=== PATIENT | male | born 1975 | race Caucasian/White ===

== ENCOUNTER 2020-09-29 21:36 | Observation (INO) ==
[2020-09-29] MEDS ORDERED: Ondansetron 4 MG/2 ML VIAL IVP PRN (23:47)
[2020-09-29] MEDS ORDERED: Naloxone 0.4 MG/ML INJ IVP PRN (23:47)
[2020-09-30 00:28] LABS: Hematocrit 45.1 % (37.5-50.1); Hemoglobin 14.5 g/dL (12.9-16.9); Mean Corpuscular HGB Conc 32.2 g/dL (31.6-35.5); Mean Corpuscular Volume 83.8 fL (83.0-100.0); Mean Platelet Volume 10.6 fL (9.4-12.4); Platelet Count 166 K/mcL (140-400); Red Blood Count 5.38 M/mcL (4.19-5.50); Red Cell Distribution Width 13.1 % (11.5-14.5)
[2020-09-30 00:42] LABS: BUN/Creatinine Ratio 18 (6-26); Blood Urea Nitrogen 20 mg/dL (6-20); C-Reactive Protein 44 mg/L (Less than 10); Calcium 8.8 mg/dL (8.6-10.3); Carbon Dioxide 22 mEq/L (23-29); Chloride 104 mEq/L (98-107); Glucose 210 mg/dL (70-105); Lactate Dehydrogenase 192 Units/L (140-271); Osmolality,Calculated 293 (280-300); Potassium 3.8 mEq/L (3.5-5.1); Sodium 137 mEq/L (136-145); eGFR For African Americans > 60 (> 60); eGFR For Non-African Americans > 60 (> 60)
[2020-09-30] MEDS ORDERED: Dextrose Gel 15 GM/37.5 ML TUBE PO PRN ×2 (00:56)
[2020-09-30] MEDS ORDERED: D5% in Water 1,000 ML IVC PRN (00:56)
[2020-09-30] MEDS ORDERED: *HR* Dextrose 50 % in Water (Vial) 50 ML VIAL IVP PRN (00:56)
[2020-09-30 01:01] LABS: Ferritin 1103 ng/mL (20-250)
[2020-09-30] MEDS: *HR* Enoxaparin 40 MG/0.4 ML SYRINGE SQ SCH (05:48)
[2020-09-30] MEDS: Insulin LISPRO 300 UNITS/3 ML VIAL SUBQ SCH ×3 (09:23→17:14)
[2020-09-30] MEDS: Loratadine 10 MG TABLET PO SCH (09:24)
[2020-09-30] MEDS: amLODIPine 5 MG TABLET PO SCH (09:24)
[2020-09-30] MEDS: Ipratropium 1 PUFF INHALER IH SCH ×3 (11:10→19:59)
[2020-10-01] MEDS: Ipratropium 1 PUFF INHALER IH SCH ×4 (00:03→11:10)
[2020-10-01] MEDS: *HR* Enoxaparin 40 MG/0.4 ML SYRINGE SQ SCH (05:26)
[2020-10-01 06:58] LABS: Hematocrit 41.2 % (37.5-50.1); Hemoglobin 13.7 g/dL (12.9-16.9); Immature Granulocytes % 0.6 % (0-4); Lymphocytes % 7.2 %; Mean Corpuscular HGB Conc 33.3 g/dL (31.6-35.5); Mean Corpuscular Hemoglobin 27.6 pg (28.0-33.3); Mean Corpuscular Volume 82.9 fL (83.0-100.0); Mean Platelet Volume 10.6 fL (9.4-12.4); Monocytes # 0.5 K/mcL (0.0-1.3); Monocytes % 3.9 %; Neutrophils # 12.2 K/mcL (1.6-8.9); Platelet Count 184 K/mcL (140-400); Red Blood Count 4.97 M/mcL (4.19-5.50); Red Cell Distribution Width 13.2 % (11.5-14.5); Segmented Neutrophils % 88.3 %
[2020-10-01 06:59] LABS: White Blood Count 13.8 K/mcL (4.3-11.1)
[2020-10-01 07:13] LABS: D-Dimer 338 ng/mLFEU (0-500)
[2020-10-01 07:17] LABS: BUN/Creatinine Ratio 25 (6-26); Blood Urea Nitrogen 29 mg/dL (6-20); Calcium 9.3 mg/dL (8.6-10.3); Carbon Dioxide 22 mEq/L (23-29); Chloride 104 mEq/L (98-107); Glucose 241 mg/dL (70-105); Magnesium 2.1 mg/dL (1.6-2.6); Osmolality,Calculated 296 (280-300); Potassium 4.2 mEq/L (3.5-5.1); Sodium 136 mEq/L (136-145); eGFR For African Americans > 60 (> 60); eGFR For Non-African Americans > 60 (> 60)
[2020-10-01 07:18] LABS: Fibrinogen 573 mg/dL (169-393)
[2020-10-01 07:52] VITALS: BP 127/77; PULSE 92; TEMP 98.8; O2SAT 92
[2020-10-01] MEDS: amLODIPine 5 MG TABLET PO SCH (09:47)
[2020-10-01] MEDS: Loratadine 10 MG TABLET PO SCH (09:47)
[2020-10-01] MEDS ORDERED: Ibuprofen 800 MG TABLET PO ONE (10:22)
[2020-10-01] MEDS: Insulin LISPRO 300 UNITS/3 ML VIAL SUBQ SCH (11:06)
== END 2020-10-01 13:00 | disposition home or self-care (01) ==
LOC: 3NENU → SUATTDRO 23:25
PROVIDERS: ADMIT Internal Medicine; ATTEND Pharmacist